=== PATIENT | male | born 1970 | race African-American/Black ===

== ENCOUNTER 2022-02-13 15:14 | Inpatient (IN) | payer MEDICARE ==
[2022-02-13] VITALS (13 sets, daily range): BP systolic 103–178; BP diastolic 34–96
[~2022-02-13] VITALS: Ht 160 cm; Wt 64.4 kg
[2022-02-13] MEDS ORDERED: SODIUM CHLORIDE 0.9% 1,000 ML IV ONE (15:45)
[2022-02-13] MEDS ORDERED: IOHEXOL-350 100 ML BOTTLE ONE (16:04)
[2022-02-13 16:15] LABS: BASOPHILS % 0.8 % (0.0-2.0); EOSINOPHILS % 0.9 % (0.0-5.0); HEMATOCRIT. 43.5 % (42.0-52.0); HEMOGLOBIN. 14.7 g/dL (14.0-18.0); LYMPHOCYTES % 48.6 % (20.0-50.0); MEAN CORPUSCULAR HEMOGLOBIN 34.5 pg (28.0-32.0); MEAN PLATELET VOLUME 8.7 fl (7.4-10.4); MONOCYTES % 8.4 % (2.0-8.0); NEUTROPHILS % 41.3 % (40.0-76.0); PLATELET 186 x1000/uL (130-400); RED BLOOD CELL COUNT 4.26 mill/uL (4.7-6.1); RED CELL DISTRIBUTION WIDTH 14.8 % (11.6-14.6)
[2022-02-13 16:23] LABS: CHLORIDE 107 mEq/L (98-107)
[2022-02-13 16:25] LABS: PROTHROMBIN TIME 10.6 sec (9.6-11.0)
[2022-02-13 16:32] LABS: ETHANOL BLOOD < 10 mg/dL
[2022-02-13 17:18] LABS: CLARITY URINE CLEAR (CLEAR); COLOR URINE YELLOW (YELLOW); KETONES URINE NEGATIVE (NEGATIVE); LEUKOCYTE ESTERASE URINE NEGATIVE (NEGATIVE); NITRITE URINE NEGATIVE (NEGATIVE); OCCULT BLOOD URINE NEGATIVE (NEGATIVE); PROTEIN URINE NEGATIVE (NEGATIVE); SPECIFIC GRAVITY URINE 1.031 (1.005-1.030); UROBILINOGEN URINE 0.2 E.U./dL (0.2-1.0)
[2022-02-13] MEDS ORDERED: THROMBIN (BOVINE) 5000 UNITS/VIAL TOP ONE (17:20)
[2022-02-13] MEDS ORDERED: LIDOCAINE HCL/EPINEPHRINE 1%-EPI 1:100,000 20 ML VIAL ONE (17:20)
[2022-02-13] MEDS ORDERED: GENTAMICIN SULF 40MG/ML 2ML VIAL ONE (17:20)
[2022-02-13] MEDS ORDERED: GLYCOPYRROLATE 0.2 MG/ML 2ML VIAL ONE ×3 (17:21→18:43)
[2022-02-13] MEDS ORDERED: DEXAMETHASONE 4MG/ML 1ML VIAL ONE (17:21)
[2022-02-13] MEDS ORDERED: ROCURONIUM BROMIDE 10MG/ML VIAL 5ML IV ONE (17:21)
[2022-02-13] MEDS ORDERED: ONDANSETRON HCL 4MG/2ML INJ ONE (17:21)
[2022-02-13] MEDS ORDERED: FENTANYL CITRATE/PF 50MCG/ML 2ML VIAL ONE (17:21)
[2022-02-13] MEDS ORDERED: ETOMIDATE 2MG/ML 10ML VIAL IV ONE (17:21)
[2022-02-13] MEDS ORDERED: SUCCINYLCHOLINE CHLORIDE 200MG/10ML IV ONE (17:21)
[2022-02-13] MEDS ORDERED: MIDAZOLAM HCL 2 MG/2 ML VIAL ONE (17:22)
[2022-02-13 17:30] LABS: *AMPHETAMINES SCREEN URINE NEGATIVE (NEGATIVE); *BARBITURATES SCREEN URINE NEGATIVE (NEGATIVE); *BENZODIAZEPINES SCREEN URINE NEGATIVE (NEGATIVE); *COCAINE SCREEN URINE NEGATIVE (NEGATIVE); CANNABINOID URINE SCREEN NEGATIVE (NEGATIVE); METHADONE URINE SCREEN NEGATIVE (NEGATIVE); OPIATES URINE SCREEN NEGATIVE (NEGATIVE); PHENCYCLIDINE URINE SCREEN NEGATIVE (NEGATIVE)
[2022-02-13] MEDS ORDERED: NICARDIPINE 100 MG in SODIUM CHLORIDE 0.9% 60 ML IV PRN ×2 (17:30→19:30)
[2022-02-13] MEDS ORDERED: CLINDAMYCIN 900 MG PREMIX 50 ML IV ONE (17:40)
[2022-02-13] MEDS ORDERED: NALOXONE HCL 0.4MG/ML VIAL IV PRN (17:45)
[2022-02-13] MEDS ORDERED: BACITRACIN 15GM TUBE TOP ONE (17:55)
[2022-02-13] MEDS ORDERED: CEFAZOLIN 1000MG PREMIX 50 ML IV SCH (18:00)
[2022-02-13] MEDS ORDERED: PROPOFOL 200MG/20ML VIAL IV ONE (18:20)
[2022-02-13] MEDS ORDERED: NEOSTIGMINE METHYLSULFATE 1MG/ML 10 ML VIAL ONE (18:37)
[2022-02-13] MEDS ORDERED: HYDRALAZINE 20MG/ML VIAL ONE (18:47)
[2022-02-13] MEDS ORDERED: LABETALOL HCL 5MG/ML VIAL 20ML IV ONE (18:48)
[2022-02-13] MEDS ORDERED: GUAIFENESIN 200MG/10ML SUGAR FREE UDC PO PRN (19:00)
[2022-02-13] MEDS ORDERED: IPRATROPIUM/ALBUTEROL 0.5-3(2.5)MG/3ML NEB NEB PRN (19:00)
[2022-02-13] MEDS ORDERED: ACETAMINOPHEN 325MG TABLET PO PRN ×2 (19:00)
[2022-02-13] MEDS ORDERED: MAGNESIUM/ALUMINUM HYDROXIDE/SIMETHICONE 30ML UDC PO PRN (19:00)
[2022-02-13] MEDS ORDERED: ONDANSETRON HCL 4MG/2ML INJ IV PRN (19:00)
[2022-02-13] MEDS: MORPHINE SULFATE 2 MG/ML CPJ (NOT FOR IM USE) IV PRN ×2 (20:13→23:51)
[2022-02-13 21:25] LABS: BG BASE EXCESS -0.2 mmol/L (-2.0-2.0); BG CARBOXYHEMOGLOBIN 0.4 % (0.5-1.5); BG DEOXYHEMOGLOBIN 10.5 % (0.0-5.0); BG FRACTION INSPIRED OXYGEN 40; BG HCO3 ACT 24.3 mmol/L (22.0-26.0); BG METHEMOGLOBIN 0.3 % (0.0-1.5); BG OXYGEN SATURATION 89.4 % (92.0-98.5); BG OXYHEMOGLOBIN 88.8 % (94.0-97.0); BG PCO2 39.3 mmHg (35.0-45.0); BG PH 7.409 (7.350-7.450); BG PO2 58.3 mmHg (75.0-100.0); BG SAMPLE SITE RIGHT BRACHIAL; BG TOTAL HEMOGLOBIN 15.2 g/dL (12.0-18.0); BG VENT MODE COOL AEROSOL
[2022-02-13] MEDS: LEVETIRACETAM 500MG PREMIX 100 ML IV SCH (21:26)
[2022-02-13] MEDS: DEXT 5%/LACTATED RINGERS 1,000 ML IV SCH (21:27)
[2022-02-13 23:27] LABS: BG BASE EXCESS -1.2 mmol/L (-2.0-2.0); BG CARBOXYHEMOGLOBIN 0.3 % (0.5-1.5); BG DEOXYHEMOGLOBIN 3.2 % (0.0-5.0); BG FRACTION INSPIRED OXYGEN 50; BG HCO3 ACT 23.6 mmol/L (22.0-26.0); BG METHEMOGLOBIN 0.3 % (0.0-1.5); BG OXYGEN SATURATION 96.8 % (92.0-98.5); BG OXYHEMOGLOBIN 96.2 % (94.0-97.0); BG PCO2 39.9 mmHg (35.0-45.0); BG PH 7.389 (7.350-7.450); BG PO2 91.2 mmHg (75.0-100.0); BG SAMPLE SITE LEFT RADIAL; BG TOTAL HEMOGLOBIN 14.5 g/dL (12.0-18.0); BG VENT MODE COOL AEROSOL
[2022-02-13] MEDS: CLINDAMYCIN 300 MG in DEXTROSE 5% WATER 50 ML IV SCH (23:33)
[2022-02-14] VITALS (47 sets, daily range): BP systolic 91–124; BP diastolic 44–74
[2022-02-14] MEDS: IPRATROPIUM/ALBUTEROL 0.5-3(2.5)MG/3ML NEB HHN SCH ×6 (00:40→20:37)
[2022-02-14] MEDS: MORPHINE SULFATE 2 MG/ML CPJ (NOT FOR IM USE) IV PRN ×3 (03:44→15:07)
[2022-02-14 05:03] LABS: BASOPHILS % 0.2 % (0.0-2.0); EOSINOPHILS % 0.4 % (0.0-5.0); HEMATOCRIT. 41.8 % (42.0-52.0); HEMOGLOBIN. 13.9 g/dL (14.0-18.0); LYMPHOCYTES % 25.6 % (20.0-50.0); MEAN CORPUSCULAR HEMOGLOBIN 34.7 pg (28.0-32.0); MEAN CORPUSCULAR VOLUME 104.3 fL (80.0-94.0); MEAN PLATELET VOLUME 8.6 fl (7.4-10.4); MONOCYTES % 8.2 % (2.0-8.0); NEUTROPHILS % 65.6 % (40.0-76.0); PLATELET 157 x1000/uL (130-400); RED BLOOD CELL COUNT 4.01 mill/uL (4.7-6.1)
[2022-02-14] MEDS: CLINDAMYCIN 300 MG in DEXTROSE 5% WATER 50 ML IV SCH ×2 (05:25→15:16)
[2022-02-14 05:32] LABS: CHLORIDE 110 mEq/L (98-107)
[2022-02-14 05:41] LABS: PHOSPHORUS 3.1 mg/dL (2.5-4.9)
[2022-02-14] MEDS: DEXT 5%/LACTATED RINGERS 1,000 ML IV SCH (08:09)
[2022-02-14] MEDS: LEVETIRACETAM 500MG PREMIX 100 ML IV SCH ×2 (08:09→21:12)
[2022-02-14] MEDS ORDERED: LEVETIRACETAM 500MG PREMIX 100 ML IV SCH (21:00)
[2022-02-15] VITALS (24 sets, daily range): BP systolic 101–129; BP diastolic 27–92
[2022-02-15] MEDS: MORPHINE SULFATE 2 MG/ML CPJ (NOT FOR IM USE) IV PRN ×3 (00:22→11:15)
[2022-02-15] MEDS: IPRATROPIUM/ALBUTEROL 0.5-3(2.5)MG/3ML NEB HHN SCH ×6 (00:46→20:23)
[2022-02-15] MEDS: DEXT 5%/LACTATED RINGERS 1,000 ML IV SCH (05:13)
[2022-02-15 05:53] LABS: BASOPHILS % 0.4 % (0.0-2.0); EOSINOPHILS % 0.9 % (0.0-5.0); HEMATOCRIT. 43.3 % (42.0-52.0); HEMOGLOBIN. 14.5 g/dL (14.0-18.0); LYMPHOCYTES % 32.8 % (20.0-50.0); MEAN CORPUSCULAR HEMOGLOBIN 35.3 pg (28.0-32.0); MEAN CORPUSCULAR VOLUME 105.3 fL (80.0-94.0); NEUTROPHILS % 55.9 % (40.0-76.0); PLATELET 141 x1000/uL (130-400); RED BLOOD CELL COUNT 4.11 mill/uL (4.7-6.1)
[2022-02-15 06:29] LABS: CHLORIDE 108 mEq/L (98-107)
[2022-02-15] MEDS: LEVETIRACETAM 500MG PREMIX 100 ML IV SCH ×2 (08:12→21:25)
[2022-02-16] VITALS (24 sets, daily range): BP systolic 99–152; BP diastolic 39–77
[2022-02-16] MEDS: MORPHINE SULFATE 2 MG/ML CPJ (NOT FOR IM USE) IV PRN ×4 (00:07→22:49)
[2022-02-16] MEDS: IPRATROPIUM/ALBUTEROL 0.5-3(2.5)MG/3ML NEB HHN SCH ×6 (00:33→20:31)
[2022-02-16] MEDS: DEXT 5%/LACTATED RINGERS 1,000 ML IV SCH (00:48)
[2022-02-16] MEDS ORDERED: HYDRALAZINE 20MG/ML VIAL IV PRN (01:15)
[2022-02-16] MEDS ORDERED: MORPHINE SULFATE 4 MG/ML CPJ (NOT FOR IM USE) IV PRN ×2 (01:45)
[2022-02-16] MEDS: LEVETIRACETAM 500MG PREMIX 100 ML IV SCH ×2 (08:59→20:35)
[2022-02-17] VITALS (20 sets, daily range): BP systolic 74–125; BP diastolic 31–88
[2022-02-17] MEDS: IPRATROPIUM/ALBUTEROL 0.5-3(2.5)MG/3ML NEB HHN SCH ×5 (00:56→20:46)
[2022-02-17] MEDS: MORPHINE SULFATE 2 MG/ML CPJ (NOT FOR IM USE) IV PRN (04:54)
[2022-02-17] MEDS: LEVETIRACETAM 500MG PREMIX 100 ML IV SCH ×2 (08:16→22:45)
[2022-02-17] MEDS ORDERED: HYDRALAZINE 10 MG in SODIUM CHLORIDE 0.9% 49.5 ML IV PRN (11:15)
[2022-02-18] VITALS: BP 105/68
[2022-02-18] MEDS: IPRATROPIUM/ALBUTEROL 0.5-3(2.5)MG/3ML NEB HHN SCH ×4 (01:05→12:11)
[2022-02-18 08:00] VITALS: BP 109/58
[2022-02-18] MEDS: LEVETIRACETAM 500MG PREMIX 100 ML IV SCH (09:54)
[2022-02-18 10:21] LABS: EOSINOPHILS % 2.4 % (0.0-5.0); HEMATOCRIT. 38.8 % (42.0-52.0); HEMOGLOBIN. 12.8 g/dL (14.0-18.0); LYMPHOCYTES % 34.1 % (20.0-50.0); MEAN CORPUSCULAR HEMOGLOBIN 34.2 pg (28.0-32.0); MEAN CORPUSCULAR VOLUME 103.8 fL (80.0-94.0); MEAN PLATELET VOLUME 8.6 fl (7.4-10.4); MONOCYTES % 9.4 % (2.0-8.0); NEUTROPHILS % 53.1 % (40.0-76.0); PLATELET 176 x1000/uL (130-400); RED BLOOD CELL COUNT 3.74 mill/uL (4.7-6.1); RED CELL DISTRIBUTION WIDTH 15.1 % (11.6-14.6)
[2022-02-18 10:26] LABS: CHLORIDE 106 mEq/L (98-107)
[2022-02-18 15:54] VITALS: BP 109/58
[2022-02-18 16:00] VITALS: BP 92/50
[2022-02-18] MEDS ORDERED: LEVETIRACETAM 500MG TABLET PO SCH (21:00)
== END 2022-02-18 16:30 | DRG 25 ==
LOC: ER 15:14 → MICUSO 17:27 → ENRESERV 17:35 → SUPCPDRO 18:58 → 6EST 02-17 11:11
PROVIDERS: ADMIT Internal Medicine; ATTEND Internal Medicine
PROC: 00C40ZZ Extirpation of Matter from Intracranial Subdural Space, Open Approach (ICD-10-PCS; principal; 2022-02-13)
PROC: 00H032Z Insertion of Monitoring Device into Brain, Percutaneous Approach (ICD-10-PCS; 2022-02-13)
PROC: 4A103BD Monitoring of Intracranial Pressure, Percutaneous Approach (ICD-10-PCS; 2022-02-13)
PROC: 009600Z Drainage of Cerebral Ventricle with Drainage Device, Open Approach (ICD-10-PCS; 2022-02-13)
PROC: 0NQ00ZZ Repair Skull, Open Approach (ICD-10-PCS; 2022-02-13)
DX: I62.02 Nontraumatic subacute subdural hemorrhage (principal); J96.00 Acute respiratory failure, unspecified whether with hypoxia or hypercapnia; G93.40 Encephalopathy, unspecified; Z20.822 Contact with and (suspected) exposure to COVID-19; I10 Essential (primary) hypertension; F79 Unspecified intellectual disabilities; M10.9 Gout, unspecified; R26.9 Unspecified abnormalities of gait and mobility; Z88.0 Allergy status to penicillin; Q90.9 Down syndrome, unspecified; R29.810 Facial weakness; R53.1 Weakness; I61.5 Nontraumatic intracerebral hemorrhage, intraventricular; R26.89 Other abnormalities of gait and mobility
CPT/HCPCS: 36415; 36600; 70496; 70498; 71045; 80048; 80053; 80305; 80320; 81003; 82375; 82805; 82962; 83605; 83735; 83880; 84100; 84484; 85025; 86850; 86900; 87426; 88304; 93005; 94640; 97112; 97116; 97161; 97162; 97165; 97166; 97530; 97535; 99291; C1713; C1758; C9803; J0330; J0360; J1100; J1580; J1953; J2250; J2270; J2405; J2704; J2710; J3010; J3490; J7030; J7050; J7060; J7120; Q9967; G0480

== ENCOUNTER 2022-02-18 16:40 | Inpatient (IN) | payer MEDICARE ==
[~2022-02-18] VITALS: Ht 160 cm; Wt 29.1 kg
[2022-02-18] MEDS ORDERED: ONDANSETRON HCL 4MG/2ML INJ IV PRN (19:15)
[2022-02-18] MEDS ORDERED: ACETAMINOPHEN 325MG TABLET PO PRN ×2 (19:15)
[2022-02-18] MEDS ORDERED: MORPHINE SULFATE 2 MG/ML CPJ (NOT FOR IM USE) IV PRN (19:15)
[2022-02-18] MEDS ORDERED: MORPHINE SULFATE 4 MG/ML CPJ (NOT FOR IM USE) IV PRN ×2 (19:15)
[2022-02-18] MEDS ORDERED: NALOXONE HCL 0.4 MG/ML 1ML VIAL IV PRN (19:15)
[2022-02-18] MEDS ORDERED: MAGNESIUM/ALUMINUM HYDROXIDE/SIMETHICONE 30ML UDC PO PRN (19:15)
[2022-02-18] MEDS ORDERED: GUAIFENESIN 200MG/10ML SUGAR FREE UDC PO PRN (19:15)
[2022-02-18] MEDS ORDERED: HYDRALAZINE 10 MG in SODIUM CHLORIDE 0.9% 49.5 ML IV PRN (19:15)
[2022-02-18 20:00] VITALS: BP 141/57
[2022-02-18 20:06] VITALS: BP 138/60
[2022-02-18] MEDS: LEVETIRACETAM 500MG TABLET PO SCH (20:48)
[2022-02-18] MEDS ORDERED: LEVETIRACETAM 500 MG in SODIUM CHLORIDE 0.9% 100 ML IV SCH (21:00)
[2022-02-18] MEDS: MORPHINE SULFATE 2 MG/ML CPJ (NOT FOR IM USE) IV PRN (23:08)
[2022-02-19] MEDS: IPRATROPIUM/ALBUTEROL 0.5-3(2.5)MG/3ML NEB HHN SCH ×7 (01:01→19:31)
[2022-02-19 06:48] LABS: BASOPHILS % 1.1 % (0.0-2.0); EOSINOPHILS % 3.2 % (0.0-5.0); HEMATOCRIT. 36.2 % (42.0-52.0); HEMOGLOBIN. 12.2 g/dL (14.0-18.0); LYMPHOCYTES % 38.6 % (20.0-50.0); MEAN CORPUSCULAR HEMOGLOBIN 34.9 pg (28.0-32.0); MEAN CORPUSCULAR VOLUME 103.3 fL (80.0-94.0); MEAN PLATELET VOLUME 8.7 fl (7.4-10.4); MONOCYTES % 13.5 % (2.0-8.0); NEUTROPHILS % 43.6 % (40.0-76.0); PLATELET 174 x1000/uL (130-400); RED CELL DISTRIBUTION WIDTH 14.5 % (11.6-14.6)
[2022-02-19 07:08] LABS: CHLORIDE 106 mEq/L (98-107)
[2022-02-19 07:23] LABS: PHOSPHORUS 3.2 mg/dL (2.5-4.9)
[2022-02-19 08:11] VITALS: BP 91/51
[2022-02-19] MEDS: LEVETIRACETAM 500MG TABLET PO SCH ×2 (08:42→20:35)
[2022-02-19] MEDS: MORPHINE SULFATE 2 MG/ML CPJ (NOT FOR IM USE) IV PRN (10:11)
[2022-02-19] MEDS ORDERED: LACTULOSE 20G/30ML UDC PO NR (19:15)
[2022-02-19] MEDS ORDERED: BISACODYL 10MG SUPP PR PRN (19:15)
[2022-02-19 20:00] VITALS: BP 110/24
[2022-02-19 23:48] VITALS: BP 111/51
[2022-02-20] MEDS: IPRATROPIUM/ALBUTEROL 0.5-3(2.5)MG/3ML NEB HHN SCH ×2 (07:32→12:03)
[2022-02-20 08:00] VITALS: BP 96/56
[2022-02-20] MEDS: LEVETIRACETAM 500MG TABLET PO SCH ×2 (08:51→20:50)
[2022-02-20] MEDS ORDERED: HYDROCODONE/ACETAMINOPHEN 5/325MG TABLET PO PRN (12:45)
[2022-02-20] MEDS: POLYETHYLENE GLYCOL 3350 (17GM) 1 DOSE PACK PO SCH (13:21)
[2022-02-20] MEDS: IPRATROPIUM/ALBUTEROL 0.5-3(2.5)MG/3ML NEB HHN PRN ×2 (16:53→20:28)
[2022-02-20] MEDS ORDERED: SENNOSIDES/DOCUSATE SOD 8.6/50MG TABLET PO PRN (17:45)
[2022-02-20] MEDS ORDERED: NA PHOS,M-B/NA PHOS,DI-BA ENEMA 118ML PR PRN (17:45)
[2022-02-20 20:00] VITALS: BP 110/56
[2022-02-20] MEDS ORDERED: MAGNESIUM HYDROXIDE 400MG/5ML 30ML UDC PO PRN (21:00)
[2022-02-21 08:00] VITALS: BP 104/57
[2022-02-21] MEDS: LEVETIRACETAM 500MG TABLET PO SCH ×2 (09:15→21:43)
[2022-02-21] MEDS: POLYETHYLENE GLYCOL 3350 (17GM) 1 DOSE PACK PO SCH (09:15)
[2022-02-21] MEDS ORDERED: NA PHOS,M-B/NA PHOS,DI-BA ENEMA 118ML PR PRN (10:15)
[2022-02-21] MEDS ORDERED: BISACODYL 5MG TABLET PO PRN (17:30)
[2022-02-21 20:00] VITALS: BP 111/61
[2022-02-22 08:00] VITALS: BP 105/57
[2022-02-22] MEDS: POLYETHYLENE GLYCOL 3350 (17GM) 1 DOSE PACK PO SCH (09:00)
[2022-02-22] MEDS: LEVETIRACETAM 500MG TABLET PO SCH ×2 (10:21→20:19)
[2022-02-22 19:54] VITALS: BP 95/45
[2022-02-23 07:37] VITALS: BP 91/52
[2022-02-23] MEDS: POLYETHYLENE GLYCOL 3350 (17GM) 1 DOSE PACK PO SCH (09:47)
[2022-02-23] MEDS: LEVETIRACETAM 500MG TABLET PO SCH ×2 (09:47→21:20)
[2022-02-23 20:00] VITALS: BP 100/61
[2022-02-24 08:00] VITALS: BP 104/55
[2022-02-24] MEDS: POLYETHYLENE GLYCOL 3350 (17GM) 1 DOSE PACK PO SCH (08:06)
[2022-02-24] MEDS: LEVETIRACETAM 500MG TABLET PO SCH ×2 (08:07→20:48)
[2022-02-24 19:49] VITALS: BP 91/49
[2022-02-25] MEDS ORDERED: KEPP500 PO (00:15)
[2022-02-25 08:00] VITALS: BP 99/54
[2022-02-25] MEDS: POLYETHYLENE GLYCOL 3350 (17GM) 1 DOSE PACK PO SCH (08:13)
[2022-02-25] MEDS: LEVETIRACETAM 500MG TABLET PO SCH (08:13)
[2022-02-25 10:42] VITALS: BP 99/54
== END 2022-02-25 11:55 | disposition home or self-care (01) | DRG 65 ==
PROVIDERS: ADMIT Psychiatry & Neurology Neurology; ATTEND Internal Medicine
DX: I62.00 Nontraumatic subdural hemorrhage, unspecified (principal); F72 Severe intellectual disabilities; G93.49 Other encephalopathy; I69.292 Facial weakness following other nontraumatic intracranial hemorrhage; Q90.9 Down syndrome, unspecified; M10.9 Gout, unspecified; R26.89 Other abnormalities of gait and mobility; F06.34 Mood disorder due to known physiological condition with mixed features; I10 Essential (primary) hypertension; G83.11 Monoplegia of lower limb affecting right dominant side
CPT/HCPCS: 36415; 80048; 83735; 84100; 85025; 93970; 94640; 97110; 97112; 97116; 97162; 97166; 97530; 97535; J2270